=== PATIENT | female | born 1940 | race Caucasian/White ===

== ENCOUNTER → 2016-12-04 | Outpatient (REF) ==
[~2016-12-04] MED LIST: BENICAR/HCTZ; FOSAMAX 70MG TA70 MG PO; LIPITOR 40MG TA40 MG PO; METFORMIN HYD1000 MG PO; PREMARIN VAG42.5 GM VG
== END ==
LOC: ZLAB.WCH 12:01
DX: Z01.89 Encounter for other specified special examinations (principal)

== ENCOUNTER → 2017-04-09 | Outpatient (REF) | LOC: ZLAB.WCH 10:22 | DX: Z01.89 Encounter for other specified special examinations (principal) ==

== ENCOUNTER → 2017-12-07 | Outpatient (CLI) | payer MEDICARE, OTHER | LOC: SUN.DIA 14:34 | DX: E11.9 Type 2 diabetes mellitus without complications (principal); E78.5 Hyperlipidemia, unspecified; I10 Essential (primary) hypertension; Z68.23 Body mass index [BMI] 23.0-23.9, adult; Z71.3 Dietary counseling and surveillance | CPT/HCPCS: G0108 ==

== ENCOUNTER → 2017-12-14 | Outpatient (REF) | LOC: ZLAB.WCH 18:37 | DX: Z01.89 Encounter for other specified special examinations (principal) ==

== ENCOUNTER → 2017-12-23 | Outpatient (CLI) | payer MEDICARE, OTHER | LOC: COL.VAS 09:50 | DX: I73.9 Peripheral vascular disease, unspecified (principal) ==

== ENCOUNTER → 2018-04-05 | Outpatient (CLI) | payer MEDICARE, OTHER | LOC: SUN.DIA 08:36 | DX: E11.9 Type 2 diabetes mellitus without complications (principal); E78.5 Hyperlipidemia, unspecified; I10 Essential (primary) hypertension; Z68.22 Body mass index [BMI] 22.0-22.9, adult; Z71.3 Dietary counseling and surveillance | CPT/HCPCS: G0108 ==

== ENCOUNTER → 2018-10-11 | Outpatient (CLI) | payer MEDICARE, OTHER | LOC: SUN.DIA 12:50 | DX: E11.9 Type 2 diabetes mellitus without complications (principal); E78.5 Hyperlipidemia, unspecified; I10 Essential (primary) hypertension | CPT/HCPCS: G0108 ==

== ENCOUNTER → 2018-12-23 | Outpatient (REF) | LOC: ZLAB.WCH 16:04 | DX: Z01.89 Encounter for other specified special examinations (principal) ==

== ENCOUNTER → 2018-12-24 | Outpatient (REF) | LOC: ZLAB.WCH 08:58 | DX: Z01.89 Encounter for other specified special examinations (principal) ==

== ENCOUNTER → 2019-04-25 | Outpatient (CLI) | payer MEDICARE, OTHER | LOC: DIA.ED 12:50 | DX: E11.9 Type 2 diabetes mellitus without complications (principal); E78.5 Hyperlipidemia, unspecified; I10 Essential (primary) hypertension | CPT/HCPCS: G0108 ==

== ENCOUNTER → 2021-01-14 | Outpatient (CLI) | payer MEDICARE, OTHER | LOC: DIA.ED 02:17 | DX: E11.9 Type 2 diabetes mellitus without complications (principal); Z79.84 Long term (current) use of oral hypoglycemic drugs; I10 Essential (primary) hypertension; E78.5 Hyperlipidemia, unspecified | CPT/HCPCS: G0108 ==